=== PATIENT | male | born 1980 | race Hispanic/Latino ===

== ENCOUNTER 2017-11-23 10:06 | Emergency (ER) | payer BC, OTHER ==
[~2017-11-23] VITALS: Ht 167.6 cm; Wt 76.3 kg
[~2017-11-23 10:06] MED LIST: FLONASE16 G1 BOTH NARES; LEVAQUIN500 MG PO; MUCINEX D ER T1 EACH PO; NAPROSYN500 MG PO; PEPCID40 MG PO
[2017-11-23 11:24] LABS: CHLORIDE 101 mEq/L (99-109); HEMATOCRIT 41.1 % (38.0-50.0); MCH 22.8 PG (29.0-34.0); MCHC 31.6 G/DL (30.0-36.0); MCV 72.1 FL (86-99); POTASSIUM 3.7 mEq/L (3.7-5.4); RBC DIS.WIDTH-CV 17.4 % (11.8-14.6); RBC DIS.WIDTH-SD 41.7 % (39-53); SODIUM 134 mEq/L (136-147); WHITE BLOOD COUNT 9.2 K/uL (4.1-10.2)
[2017-11-23 11:25] LABS: GLUCOSE 99 mg/dL (70-99)
[2017-11-23 11:29] LABS: GFR ESTIMATE (CALCULATED) > 59 mL/min/ (58.99-99999)
[2017-11-23 11:30] LABS: UREA NITROGEN (BUN) 22 mg/dL (9-23)
[2017-11-23 12:04] LABS: PLAT.SUFFICIENCY ADEQUATE; PLATELET COUNT 229 K/uL (156-360)
[2017-11-23 13:49] LABS: ALBUMIN 4.3 g/dL (3.2-4.8)
[2017-11-23 13:50] LABS: APPEARANCE CLEAR ((CLEAR)); BILIRUBIN NEGATIVE; BLOOD NEGATIVE; COLOR YELLOW ((YELLOW)); GLUCOSE (STRIP) NEGATIVE; KETONES 20; LEUKOCYTES NEGATIVE; NITRITE NEGATIVE; PROTEIN (STRIP) NEGATIVE; SPECIFIC GRAVITY 1.027 (1.000-1.030); UCUL ADDED? NO; UROBILINOGEN 0.2 MG/DL (0.2-1.0)
[2017-11-23 13:52] LABS: TOTAL PROTEIN 7.3 g/dL (6.4-8.3)
[2017-11-23 13:54] LABS: TOTAL BILIRUBIN 2.8 mg/dL (0.0-1.0)
[2017-11-23 13:55] LABS: ALKALINE PHOSPHATASE 91 IU/L (3-129)
[2017-11-23 13:57] LABS: AST (GOT) 22 IU/L (2-34)
[2017-11-23 13:58] LABS: ALT (GPT) 14 IU/L (3-49); DIRECT BILIRUBIN 0.7 mg/dL (0.0-0.3)
[2017-11-23 13:59] LABS: CREATINE KINASE 268 IU/L (1-294); LIPASE 25 U/L (1.0-51.0)
[2017-11-23] MEDS ORDERED: ZOFRAN ODT8 MG PO (14:54)
[2017-11-23] MEDS ORDERED: BENTYL20 MG PO (14:54)
[2017-11-23] MEDS ORDERED: MOTRIN800 MG PO (14:55)
[2017-11-23 15:14] VITALS: BP 104/60
== END 2017-11-23 15:15 | disposition home or self-care (01) ==
LOC: EME 10:06
DX: A08.4 Viral intestinal infection, unspecified (principal); E86.0 Dehydration; M79.1 Myalgia
CPT/HCPCS: 80048; 80076; 81003; 82550; 83690; 85027; 99281; 99285